=== PATIENT | female | born 1955 | race Caucasian/White ===

== ENCOUNTER 2019-04-25 10:57 | Inpatient (IN) ==
--- NOTE | 2019-04-25 11:50 | PROVIDER DOCUMENTATION ---
HPI-Neurological Disorder - General Chief Complaint: Stroke-Like Symptoms Stated Complaint: STROKE LIKE SYMPTOMS,FACIAL NUMBNESS,DIABETIC Time Seen by Provider: 04/25/19 11:28 Source: patient Allergies/Adverse Reactions: Patient Allergies Allergy/AdvReac Type Severity Reaction Status Date / Time No Known Allergies Allergy Verified 04/25/19 11:16 Home Medications: Home Medication List Medication Instructions Recorded Confirmed Last Taken Type Famotidine 40 mg PO BID 04/25/19 04/25/19 04/24/19 History Metformin HCl [Metformin HCl ER] 1,000 mg PO BID 04/25/19 04/25/19 04/25/19 History Ramipril 2.5 mg PO DAILY 04/25/19 04/25/19 04/24/19 History Sitagliptin [Januvia] 100 mg PO DAILY 04/25/19 04/25/19 04/24/19 History - History of Present Illness-Neuro Nature of Presenting Problem: Patient with a h/o DM, Gerd ?HTN reports severe headache with left facial numbness and slurred speech around 7AM today. Reports symptom improvement. Headache is now 3/10, no more facial numbness and speech is back to baseline at this time of evaluation. Denies extremity weakness. Reports no other symptom Headache Location: reports: global Severity: reports: mild, moderate Onset/Duration: reports: 4-6 hours ago Timing: reports: improving Context: reports: impaired speech Character of Altered Mental Status: reports: N/A Any recent trauma/injury?: reports: none Character of Deficits: reports: altered sensation New weakness or altered sensation location:: reports: none Cognitive Baseline: alert, oriented x3 Associated Symptoms: reports: slurred speech Similar Symptoms Previously?: No Recently seen or treated by another doctor?: No Review of Systems - Adult - REVIEW OF SYSTEMS - ADULT Constitutional: reports: no symptoms reported Eyes: reports: no symptoms reported Ears, Nose, Mouth & Throat: reports: no symptoms reported Cardiovascular: reports: no symptoms reported Respiratory: reports: no symptoms reported Gastrointestinal: reports: no symptoms reported Genitourinary: reports: no symptoms reported Musculoskeletal: reports: no symptoms reported Integumentary: reports: no symptoms reported Neurological: reports: see HPI Psychiatric: reports: no symptoms reported Endocrine: reports: no symptoms reported Hematologic/Lymphatic: reports: no symptoms reported Allergic/Immunologic: reports: no symptoms reported Past History - Adult - PAST MEDICAL HISTORY-ADULT Review of Records: reports: Nursing Assessment Review, Medications Reviewed, Social history reviewed & non-contributory. Cardiovascular: reports: HTN Respiratory: reports: denies history Gastrointestinal: reports: GERD Genitourinary: reports: denies history Musculoskeletal: reports: denies history Neurological: reports: past injury (concussion) Psychiatric: reports: denies history Endocrine/Immune: reports: denies history, Diabetes - PRIOR SURGERIES/PROCEDURES Surgical/Procedure History: reports: none - IMMUNIZATION STATUS Flu Vaccine: See Nurse Assessment - FAMILY HISTORY Family History: reviewed, not pertinent - SOCIAL HISTORY Smoking: other (former smoker) Substance Use: none/never Alcohol Use Frequency: never Living Situation: family Physical Exam- Neurological - Physical Exam-Neuro Initial Vital Signs Reviewed: Yes General Appearance: appears well, alert, no apparent distress Eye Exam: bilateral eye: PERRL, EOMI HENMT: normocephalic/atraumatic Head Injury: no evidence of injury Neck: non-tender, full range of motion, supple Respiratory: chest non-tender, lungs clear, normal breath sounds Cardiovascular: regular rate, rhythm Abdominal Exam: non tender, soft Extremity: normal range of motion director radio Exam: normal hearing, normal speech, PERRL Motor/Sensory: no motor deficit, no sensory deficit Neurologic: director radio II-XII nml as tested Integumentary: normal color Psych/Mental Status: oriented x 3 - Glascow Coma Scale Best Eye Response: (4) open spontaneously Best Verbal Response: (5) oriented Best Motor Response: (6) obeys commands Progress - PLAN OF CARE/RESULTS Progress/Plan/Lab Results: Vital Signs - 8 hr 04/25/19 11:00 Temperature 98.1 F Pulse Rate 87 Respiratory Rate 17 Blood Pressure 197/88 O2 Sat by Pulse Oximetry 97 Laboratory Results - last 24 hr 04/25/19 04/25/19 04/25/19 11:10 12:03 12:03 WBC 7.04 RBC 4.96 Hgb 14.7 Hct 44.6 MCV 89.9 MCH 29.6 MCHC 33.0 RDW Std Deviation 12.4 Plt Count 256 MPV 9.8 Immature Gran % (Auto) 0.3 Neut % (Auto) 63.8 Lymph % (Auto) 24.6 [place] % (Auto) 7.4 Eos % (Auto) 3.6 Baso % (Auto) 0.3 Immature Gran # (Auto) 0.02 Neut # (Auto) 4.50 Lymph # (Auto) 1.73 [place] # (Auto) 0.52 Eos # (Auto) 0.25 Baso # (Auto) 0.02 PT INR PTT (Actin FS) Sodium 141 Potassium 4.3 Chloride 99 Carbon Dioxide 25 Anion Gap 17 BUN 10 Creatinine 0.5 Estimated GFR/1.73 m2 > 60 BUN/Creatinine Ratio 20 Glucose 158 H POC Glucose Calculated Osmolality 284 Calcium 9.0 Total Bilirubin 0.24 AST 20 ALT 28 Alkaline Phosphatase 83 Troponin T Total Protein 7.4 Albumin 4.7 Globulin 2.7 Albumin/Globulin Ratio 1.7 Urine Opiates Screen NONE DETECTED Ur Oxycodone Screen NONE DETECTED Ur Methadone, Qual NONE DETECTED Ur Barbiturates Screen NONE DETECTED Ur Phencyclidine Scrn NONE DETECTED Ur Amphetamines Screen NONE DETECTED U Benzodiazepines Scrn NONE DETECTED Urine Cocaine Screen NONE DETECTED U Cannabinoids Screen NONE DETECTED 04/25/19 04/25/19 04/25/19 12:03 12:03 13:09 WBC RBC Hgb Hct MCV MCH MCHC RDW Std Deviation Plt Count MPV Immature Gran % (Auto) Neut % (Auto) Lymph % (Auto) [place] % (Auto) Eos % (Auto) Baso % (Auto) Immature Gran # (Auto) Neut # (Auto) Lymph # (Auto) [place] # (Auto) Eos # (Auto) Baso # (Auto) PT 11.8 INR 0.86 PTT (Actin FS) 23.5 Sodium Potassium Chloride Carbon Dioxide Anion Gap BUN Creatinine Estimated GFR/1.73 m2 BUN/Creatinine Ratio Glucose POC Glucose 152 H Calculated Osmolality Calcium Total Bilirubin AST ALT Alkaline Phosphatase Troponin T < 0.010 Total Protein Albumin Globulin Albumin/Globulin Ratio Urine Opiates Screen Ur Oxycodone Screen Ur Methadone, Qual Ur Barbiturates Screen Ur Phencyclidine Scrn Ur Amphetamines Screen U Benzodiazepines Scrn Urine Cocaine Screen U Cannabinoids Screen Orders Category Date Time Status Cardiac Monitoring DIRECTED Care 04/25/19 11:46 Active Finger Stick Blood Sugar (ED) DIRECTED Care 04/25/19 11:46 Completed Saline Loc NOW Care 04/25/19 11:46 Active Diabetic Diet Diet 04/25/19 15:25 Active CHEST-PORTABLE [RAD] Stat Exams 04/25/19 11:[address] HEAD W/O CONTRAST [CT] Stat Exams 04/25/19 11:[address] THORAX W/CONTRAST [CT] Stat Exams 04/25/19 13:00 Completed CBC WITH ELECTRONIC DIFF [HEME] Stat Lab 04/25/19 12:03 Completed COMPREHENSIVE METABOLIC PANEL [CHEM] Stat Lab 04/25/19 12:03 Completed PROTIME WITH INR [COAG] Stat Lab 04/25/19 12:03 Completed PTT [COAG] Stat Lab 04/25/19 12:03 Completed TROPONIN T Stat Lab 04/25/19 12:03 Completed URINE DRUG SCREEN Stat Lab 04/25/19 11:10 Completed Acetaminophen [Tylenol] Med 04/25/19 11:59 Discontinued 650 mg PO NOW ONE EKG [EKG] Stat Ther 04/25/19 11:46 Ordered Result Diagrams: 04/25/19 12:03 04/25/19 12:03 - XRAY 1 XRAY Study: Chest ( CHEST-PORTABLE - 04/25/2019 INDICATION: stroke like s ymptoms COMPARISON: None FINDINGS: Lung volumes are severely low. There is a pulmonary nodule in the left midlung. This measures about 1.5 cm. This is not clearly calcified. Heart size is normal. No pneumothorax or pleural effusion. IMPRESSION: Indeterminate pulmonary nodule in the left lung. Chest CT is recommended. Electronically signed by Usman Ramachandran 04/25/2019 12:14 PM) - CT/MRI 1 CT Study: Head ( CT HEAD W/O CONTRAST - 04/25/2019 INDICATION: stroke like symptoms COMPARISON: 03/15/2018 FINDINGS: The ventricles and sulci are normal in size and contour. No intracranial mass or hemorrhage. The skull is intact. The sinuses mastoids and middle ears are clear. IMPRESSION: Negative exam. This exam was performed using automated exposure control, adjustment of mA or kV according to patient size, and/or use of iterative reconstruction technique Electronically signed by Usman Ramachandran 04/25/2019 12:20 PM) 2 CT Study: Thorax ( CT THORAX W/CONTRAST - 04/25/2019 INDICATION: pulmonary nodule on cxr COMPARISON: Chest x-ray from earlier today FINDINGS: There is diffuse fatty change of the liver. No liver masses. Otherwise upper abdomen appears normal. There is no adenopathy. Heart and great vessels are normal. In the lateral right lower lobe, there is a round uniformly well-defined soft tissue density pulmonary nodule. This measures about 1.4 cm. There are several satellite nodules around it. Airways are clear. Bones are intact. IMPRESSION: 1. Left lower lobe pulmonary nodule, indeterminate but likely a benign granulomatous process. Recommend a short-term interval, 2-3 month follow-up chest CT. 2. Hepatic steatosis. This exam was performed using automated exposure control, adjustment of mA or kV according to patient size, and/or use of iterative reconstruction technique Electronically signed by Usman Ramachandran 04/25/2019 2:24 PM) - CONSULTS/PCP/HOSPITALIST Notification #1 *Consult/PCP/Hospitalist*: Dr Chappell Time Discussed: 03:55 Consult Disposition: Admit ([facility]LALLI Triplett accepted admission for Dr Chappell) Departure - Departure Date of Disposition Decision: 04/25/19 Time of Disposition Decision: 16:07 DIAGNOSIS: TIA (transient ischemic attack), Pulmonary nodule Disposition: ADMITTED INPATIENT 09 Certified Medical Emergency: Emergent Condition: Fair Referrals and Follow-Ups: Lali Johnson [Primary Care Provider] - - Critical Care Note This patient required my direct & personal management of CC.: No Attestation - Physician/ KATHLEEN Attestation Patient care was provided by Advanced Practice Provider:: No The physician spent face to face time with patient:: Yes Advanced Practice Provider documentation review:: Supervising physician onsite and consulted in the evaluation and care of this patient. The physician did have a face to face encounter with the patient.
[2019-04-25] MEDS ORDERED: TYLENOL PO ONE (11:59)
[2019-04-25 12:16] LABS: BASO# 0.02 X1000 (0.0-0.2); BASO% 0.3 % (0.0-0.8); EOS# 0.25 X1000 (0.0-0.7); EOS% 3.6 % (0.0-10.0); HEMATOCRIT 44.6 % (37.0-47.0); HEMOGLOBIN 14.7 g/dL (12.0-16.0); IMM GRAN# 0.02 X1000 (0.0-0.04); IMM GRAN% 0.3 % (0.0-0.5); LYMPH# 1.73 X1000 (1.2-3.4); LYMPH% 24.6 % (20.5-51.1); MCH 29.6 PG (27-31); MCV 89.9 FL (81-99); MONO# 0.52 X1000 (0.11-0.59); MONO% 7.4 % (1.7-9.3); MPV 9.8 FL (7.4-10.4); NEUT% 63.8 % (42.2-75.2); PLT 256 X1000 (130-400); RBC 4.96 XMIL (4.2-5.4); RDW 12.4 % (11.5-14.5); WBC 7.04 X1000 (4.8-10.8)
--- NOTE | 2019-04-25 12:17 | Diag Imaging Result Doc PS360 ---
CHEST-PORTABLE - 04/25/2019 INDICATION: stroke like symptoms COMPARISON: None FINDINGS: Lung volumes are severely low. There is a pulmonary nodule in the left midlung. This measures about 1.5 cm. This is not clearly calcified. Heart size is normal. No pneumothorax or pleural effusion. IMPRESSION: Indeterminate pulmonary nodule in the left lung. Chest CT is recommended. Electronically signed by Usman Ramachandran 04/25/2019 12:14 PM
--- NOTE | 2019-04-25 12:22 | Diag Imaging Result Doc PS360 ---
CT HEAD W/O CONTRAST - 04/25/2019 INDICATION: stroke like symptoms COMPARISON: 03/15/2018 FINDINGS: The ventricles and sulci are normal in size and contour. No intracranial mass or hemorrhage. The skull is intact. The sinuses mastoids and middle ears are clear. IMPRESSION: Negative exam. This exam was performed using automated exposure control, adjustment of mA or kV according to patient size, and/or use of iterative reconstruction technique Electronically signed by Usman Ramachandran 04/25/2019 12:20 PM
[2019-04-25 12:24] LABS: INR 0.86; PROTIME 11.8 Seconds (11.0-16.0)
[2019-04-25 12:25] LABS: PTT 23.5 Seconds (22.3-41.8)
[2019-04-25 12:39] LABS: AGAP 17; ALB/GLOB RATIO 1.7; ALBUMIN 4.7 g/dL (3.5-5.0); ALKALINE PHOSPHATASE 83 U/L (32-104); BUN 10 mg/dL (8-22); CHLORIDE 99 mmol/L (98-107); COSMO 284; CREATININE 0.5 mg/dL (0.5-0.9); ESTIMATED GFR > 60; GLUCOSE 158 mg/dL (70-104); GOT 20 U/L (10-30); GPT 28 U/L (10-36); POTASSIUM 4.3 mmol/L (3.5-5.1); SODIUM 141 mmol/L (136-145); TCO2 25 mmol/L (25-35); TOTAL BILIRUBIN 0.24 mg/dL (0.20-1.00); TOTAL PROTEIN 7.4 g/dL (6.3-8.3)
[2019-04-25 12:43] LABS: UR AMPHETAMINES QUAL NONE DETECTED (NONE DETECT); UR BARBITUATES QUAL NONE DETECTED (NONE DETECT); UR BENZODIAZEPIN QUAL NONE DETECTED (NONE DETECT); UR CANNABINOIDS QUAL NONE DETECTED (NONE DETECT); UR COCAINE QUAL NONE DETECTED (NONE DETECT); UR METHADONE QUAL NONE DETECTED (NONE DETECT); UR OPIATES QUAL NONE DETECTED (NONE DETECT); UR OXYCODONE QUAL NONE DETECTED (NONE DETECT); UR PCP QUAL NONE DETECTED (NONE DETECT)
--- NOTE | 2019-04-25 14:27 | Diag Imaging Result Doc PS360 ---
CT THORAX W/CONTRAST - 04/25/2019 INDICATION: pulmonary nodule on cxr COMPARISON: Chest x-ray from earlier today FINDINGS: There is diffuse fatty change of the liver. No liver masses. Otherwise upper abdomen appears normal. There is no adenopathy. Heart and great vessels are normal. In the lateral right lower lobe, there is a round uniformly well-defined soft tissue density pulmonary nodule. This measures about 1.4 cm. There are several satellite nodules around it. Airways are clear. Bones are intact. IMPRESSION: 1. Left lower lobe pulmonary nodule, indeterminate but likely a benign granulomatous process. Recommend a short-term interval, 2-3 month follow-up chest CT. 2. Hepatic steatosis. This exam was performed using automated exposure control, adjustment of mA or kV according to patient size, and/or use of iterative reconstruction technique Electronically signed by Usman Ramachandran 04/25/2019 2:24 PM
--- NOTE | 2019-04-25 18:34 | HISTORY AND PHYSICAL ---
CHIEF COMPLAINT: Headache with left facial numbness and slurred speech that started at 7 a.m. HISTORY OF PRESENT ILLNESS: This is a 63-year-old female who presented to the emergency room after having a severe headache, developing left facial numbness and slurred speech around 7 a.m. She presented to the emergency room at 11:30, stated that symptoms had improved with headache being a 3/10 and resolution of facial numbness and slurred speech. She feels like that other than the headache, she is back to her normal self. She denied any change in vision, any chest pain, nausea, any shortness of breath, or any other accompanying symptoms. PAST MEDICAL HISTORY: Hypertension, gastroesophageal reflux disease, and diabetes mellitus. PAST SURGICAL HISTORY: Ablation. SOCIAL HISTORY: She denies alcohol, tobacco, or illicit drug use. ALLERGIES: No known drug allergies. HOME MEDICATIONS: Pepcid, metformin, ramipril, and Januvia. Doses will be verified by the nursing staff. FAMILY HISTORY: Positive for diabetes mellitus and hypertension in parents. REVIEW OF SYSTEMS: Discussed with patient with pertinent positives stated in the HPI. She denied any syncope, dizziness, any chest pain or palpitations, any shortness of breath, cough, fever, chills, night sweats, recent weight loss or weight gain, any difficulty swallowing, any nausea, vomiting, diarrhea, constipation, black or bloody vomitus or stools, hematuria, dysuria, frequency, urgency. PHYSICAL EXAMINATION: GENERAL: This is a 63-year-old female who is sitting up on the stretcher in the emergency room in no distress. VITAL SIGNS: Blood pressure is 194/86, with a heart rate of 87, respirations are 17. Temperature is 98.1 degrees oral with room air saturations 99%. EYES: Pupils equal, round, react to light. EOMs are intact. Sclerae anicteric. HEENT: Head is normocephalic, atraumatic. Mucous membranes are moist. NECK: Supple with trachea midline. CARDIOVASCULAR: Regular rate and rhythm. S1 and S2 appreciated. She has no lower extremity edema. Calves are nontender bilaterally, with peripheral pulses palpable x4 extremities. PULMONARY: Breath sounds are clear. No increased work of breathing noted. Chest rises and falls symmetric to respiration. GASTROINTESTINAL: Abdomen is soft, nontender, nondistended, with bowel sounds in all 4 quadrants. GENITOURINARY: No CVA or suprapubic tenderness. NEUROLOGIC: She is alert and oriented x3. Pupils are equal, round, react to light. Forehead is spared. She has no facial droop. Equal nasal flaring. No tongue or uvula deviation. Speech is clear. She has equal shoulder shrug. No plantar drift. [id number] is 3/3 bilaterally. Sports Internship are equal and strong. Muscle strength is 5/5 in all 4 extremities. Gait is steady. LABORATORY AND DIAGNOSTIC DATA: 1. WBC is 7.0, with hemoglobin 14.7, hematocrit 44.6, and platelets 256,000. Sodium 141, potassium 4.3, BUN 10, creatinine 0.5, with a glucose of 158. Urine drug screen reveals none detected. 2. CT of the head is a negative exam. 3. Chest x-ray reveals indeterminate pulmonary nodule that measures about 1.5 cm in the left mid lung with CT of the chest recommended. 4. CT of the thorax with contrast revealed the left lower lobe pulmonary nodule, indeterminate, but likely a benign granulomatous process. Recommend followup in 2 to 3 months. Hepatic steatosis. ASSESSMENT: 1. Transient ischemic attack. 2. Headache. 3. Pulmonary nodule. 4. Gastroesophageal reflux disease. 5. Diabetes mellitus. 6. Hypertension. PLAN: 1. The patient will be admitted to the hospital, placed on telemetry, neurologic checks every 4 hours, patterned blood glucose with sliding scale insulin. We will identify her home medications and continue these as appropriate. Check a CBC, CMP, lipid profile in the morning. Get bilateral carotid Doppler as well as an echocardiogram. 2. Will allow for permissive hypertension giving hydralazine 10 mg IV q.4 hours p.r.n. systolic blood pressure greater than 190 or diastolic blood pressure greater than 90. 3. Pulmonary nodule. The patient will need to follow up with her primary care provider, Lali Johnson, for further workup as recommended per Radiology, a CT of the chest in 2 to 3 months. 4. Plan was discussed with Dr. Boogie. Further treatments pending hospital course. Dictated by HELADIO Randhawa for Bryce Nova MD cc: HELADIO Randhawa MD
--- NOTE | 2019-04-25 18:50 | HISTORY AND PHYSICAL ---
ADDENDUM: Patient seen and examined by me [id number]. All the laboratory, vital signs and images were reviewed. Patient presented to the emergency department with left-sided face weakness and slurred speech, but at the moment of her evaluation, the symptoms were already resolved. Apparently, everything started around 7 a.m. today. She was complaining of some headache and apparently some kind of light and started having some facial weakness with slurred speech. Her blood pressure was elevated. Her physical exam is benign. I will put her on aspirin. Also, I will put her on Lipitor and I will start with 20 daily. I will check the lipid panel as well. Depending on her evolution, probably I will get Neurology Department to see this patient. I will get an echocardiogram and also a carotid ultrasound. I agree with the rest of the nurse practitioner's assessment and plan. cc: Bryce Nova MD
[2019-04-25] MEDS: APRESOLINE IV PRN (20:00)
[2019-04-25] MEDS: ASPIRIN EC PO SCH (20:14)
[2019-04-25] MEDS: HUMALOG SUBQ SCH (22:23)
[2019-04-26] MEDS: APRESOLINE IV PRN (01:10)
[2019-04-26] MEDS: HUMALOG SUBQ SCH ×3 (06:33→16:27)
[2019-04-26 07:24] LABS: HEMATOCRIT 39.7 % (37.0-47.0); HEMOGLOBIN 13.4 g/dL (12.0-16.0); MCH 30.1 PG (27-31); MCHC 33.8 g/dL (33-37); MCV 89.2 FL (81-99); MPV 9.8 FL (7.4-10.4); RBC 4.45 XMIL (4.2-5.4); RDW 12.6 % (11.5-14.5); WBC 8.14 X1000 (4.8-10.8)
[2019-04-26 08:07] LABS: AGAP 16; ALB/GLOB RATIO 1.6; ALBUMIN 4.2 g/dL (3.5-5.0); ALKALINE PHOSPHATASE 83 U/L (32-104); BUN 11 mg/dL (8-22); CALCIUM 8.1 mg/dL (8.8-10.2); CHLORIDE 98 mmol/L (98-107); CHOLESTEROL 211 mg/dL (0-200); COSMO 280; CREATININE 0.6 mg/dL (0.5-0.9); ESTIMATED GFR > 60; GLUCOSE 181 mg/dL (70-104); GOT 18 U/L (10-30); GPT 23 U/L (10-36); HDL 53 mg/dL (45-65); LDL 115 mg/dL; POTASSIUM 3.6 mmol/L (3.5-5.1); SODIUM 138 mmol/L (136-145); TCO2 24 mmol/L (25-35); TOTAL BILIRUBIN 0.35 mg/dL (0.20-1.00); TOTAL PROTEIN 6.9 g/dL (6.3-8.3); TRIGLYCERIDES 217 mg/dL (35-135); VLDL 43 mg/dL
[2019-04-26] MEDS: LIPITOR PO SCH (09:50)
[2019-04-26] MEDS: ASPIRIN EC PO SCH (09:50)
[2019-04-26] MEDS: JANUVIA PO SCH (09:50)
[2019-04-26] MEDS: GLUCOPHAGE XR PO SCH ×2 (09:50→20:36)
--- NOTE | 2019-04-26 12:30 | CONSULTATION ---
DATE OF CONSULTATION: 04/26/2019 LOCATION: Room 322B. HISTORY OF PRESENT ILLNESS: Ms. Prescott is 63 years old and she had possible neurologic episode yesterday. 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 She opened the blinds and noted very bright light coming from her right. She believes vision was disturbed without any focal or monocular features, and took a few minutes to adjust to the bright light. She developed headache, which was mostly bilateral forehead pressure and aching, very similar to what she has experienced with "sinus and allergy problems" in the past. She called to her daughter, and says that she noticed her speech was very high-pitched, which was unusual. She then seemed to have trouble finding her words and making complete sentences. Ambulance was summoned. By the time paramedics arrived, in just a few minutes, she was speaking much better, and may have been back to normal. She did recover completely to normal very soon. Headache persisted through the day, but has resolved this morning. She had a sense of numbness over the left side of her face during the time of vision disturbance and speech difficulty. This resolved in a matter of minutes. She did not look in the mirror and she reports no one reported facial asymmetry to her. There was no slurring of speech. She did not have trouble chewing or swallowing. She did not have numbness or weakness in the limbs. There was no gait difficulty. She did not lose consciousness or have a memory gap. She reports no prior similar episode. There is no history of previous diagnosed stroke. She has never had seizure or other neurologic event. There is not history of serious head injury. She has a history of episodic headaches, but she has never had a headache associated with neurologic deficit before. She has longstanding hypertension. She reports blood pressure is checked at home, systolics running 180s to 200s in recent days. She presented with systolic blood pressure 190s here. She had missed at least one dose of ramipril prior to admission. After getting her morning medicine, systolic blood pressure is 120 today. She has diabetes mellitus, treated with metformin. Blood sugars have been 150s to 180s here. She has dyslipidemia, and told me that she thinks she takes medicine for cholesterol, but I do not see anything on her preadmission medication list. Atorvastatin was started here. Admission lab showed triglycerides 217 and total cholesterol 211, with LDL [address] and VLDL [address] of the head was unremarkable. PHYSICAL EXAMINATION: On exam, Ms. Prescott is awake, alert, attentive, appropriate. Speech is not dysarthric. Language function is intact on careful bedside testing, including repeating, naming, comprehension, fluency, reading. I did not test handwriting. She did well on test requiring digit distinction and right/left distinction. Recent and remote memory are good. She is completely oriented. Head and neck are unremarkable. Visual andres are full to confrontational finger counting. Extraocular movements are full. Facial motility is symmetric. Facial sensation is intact. Gag is intact. Tongue is midline. Hearing is good. Shoulder shrug is equal. Strength is normal in the arms and legs. Tone is symmetric. She did well on [id number] testing bilaterally. She reports good pinprick and light touch appreciation throughout, including no evidence of stocking pattern of sensory loss. Plantar response is silent bilaterally. Reflexes are 2+ at the left ankle, trace at the right ankle, 2+ at the knees, 2+ at the wrists, 1+ at the biceps. I did not test her gait. IMPRESSION: Transient difficulty making herself understood with speech, subjective left-sided facial numbness, bilateral forehead pain. This has all resolved. She presented with significant blood pressure elevation. We discussed her risk factors for cerebrovascular ischemic problem, and I encouraged her to be aggressive with management of those. She had taken daily aspirin in the past, but stopped that after gastrointestinal workup, and did not resume it. If she cannot tolerate aspirin, clopidogrel might be an option. Etiology of episode is not certain. Migraine is a possibility. Transient ischemic attack is a possibility. Transient neurologic symptoms related to elevated blood pressure is a possibility. At this point, she is stable, completely recovered, and I do not think we have to do anything more urgently. I will be glad to see her again if she has headache with blood pressure controlled, if she has more neurologic deficit or other neurologic problem. Thank you for asking Neurology to see Ms. Prescott. cc: MD VICTOR M Roche III
--- NOTE | 2019-04-26 12:59 | PROGRESS NOTE ---
DATE: 04/26/2019 SUBJECTIVE: No acute events overnight. She is not having any kind of symptoms at this moment. Pending Neurology Department evaluation, as well as carotid ultrasound and echocardiogram. OBJECTIVE: Vital Signs: Temperature 98.6 degrees, pulse 97, respiratory rate 20, blood pressure 145/70, oxygen saturation 99 on room air. HEENT: Head normocephalic. No trauma. PERRLA. Neck: Supple. No JVD. No masses. Central trachea. Chest: Clear to auscultation. No wheezing. No rales. Abdomen: Soft, nontender, nondistended. No hepatosplenomegaly. Extremities: No edema, no clubbing, no cyanosis. Neurological: The patient is alert. She is oriented x3. No focal neurological deficits. LABORATORY DATA: WBC 8.1, hemoglobin 13.4, hematocrit 39.7, platelets 287,000. Sodium 138, potassium 3.6, chloride 98, bicarbonate 24, BUN 11, creatinine 0.6, glucose 181, calcium 8.1. AST 18, ALT 23, alkaline phosphatase 83, albumin 4.2. Triglycerides 217, cholesterol 211, LDL 115. ASSESSMENT AND PLAN: 1. Transient ischemic attack. As per the patient, she started having left-sided face weakness and slurred speech, but at the moment of my evaluation yesterday and today, that was resolved. At this moment, the carotid ultrasound and the echocardiogram are pending. Also, I have requested an evaluation by Neurology Department. Chest CT scan showed a left lower lobe pulmonary nodule, and she will need to repeat a CT scan again in 2 to 3 months. This has been explained to the patient. CT scan of the head without any kind of problems. 2. Gastroesophageal reflux disease. Continue with the same management. 3. Diabetes. I have placed this patient back on her home medications, and also I will request a hemoglobin A1c. 4. Hypertension. I will continue with her home medications, and I will monitor. 5. Pulmonary nodule seen on the CT scan. They have recommended a followup in 2 to 3 months. 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 cc: Bryce Nova MD
[2019-04-26] MEDS: ALTACE PO SCH (13:23)
--- NOTE | 2019-04-26 19:29 | ECHO REPORT ---
ORDER DATE: 04/25/2019 INDICATION: Transient ischemic attack, coronary heart disease suspected. M-MODE MEASUREMENTS: Left ventricle end diastole: 4.2. Left ventricle end systole: 2.2. Posterior wall: 0.9. Interventricular septum: 0.9. Left atrium: 2.2. Aortic diameter: 2.7. SUMMARY OF 2-DIMENSIONAL IMAGIN. Left ventricular function is normal. Ejection fraction is 67%. There is no wall motion abnormality. 2. The aortic valve looks normal. Color flow mapping unremarkable. 3. The mitral valve looks normal. Color flow mapping unremarkable. 4. Pulsed wave Doppler of mitral inflow shows mild reversal of the E/A ratio. The ratio is 0.6. 5. Tissue Doppler of septal and lateral mitral annulus averages 7 cm. 6. Pulmonary venous flow is normal. There is no diastolic dysfunction. 7. The inferior vena cava is not dilated. 8. The tricuspid valve shows a minimal degree of regurgitation. Pulmonary pressure is estimated at 33 mmHg. 9. The pulmonic valve is unremarkable. 10.There is no pericardial effusion, no mass, and no thrombus. SUMMARY: This study shows: 1. Normal left ventricular systolic function. 2. No diastolic dysfunction. 3. Pulmonary pressure of 33 mm Hg. 4. No evidence of any significant valvular abnormality. Clinical correlation recommended. cc: MD Flora Calderón CRNP
[2019-04-27] MEDS: HUMALOG SUBQ SCH ×2 (02:16→06:21)
--- NOTE | 2019-04-27 06:28 | Carotid Study ---
DATE: 04/26/2019 REFERRING PRACTITIONER: Dr. Ro READING PHYSICIAN: Dr. Jaime Cooper. MANAGER ENVIRONMENTAL HEALTH: Talia. INDICATION: TIA. FINDINGS: There is irregular calcific plaque at the right carotid bulb and proximal internal carotid artery producing some turbulent flow and elevated velocity. There is smaller plaque in the same location on the left side. There is antegrade vertebral flow bilaterally. The percent stenosis is 40 to 59 percent on the right, 0 to 39 percent on the left. INTERPRETATION: Moderate plaque disease on the right side as described above and mild plaque disease on the left side, neither of which are hemodynamically significant at this time. cc: MD Flora Han CRNP
[2019-04-27 07:50] LABS: AGAP 15; BUN 17 mg/dL (8-22); CHLORIDE 99 mmol/L (98-107); COSMO 281; CREATININE 0.6 mg/dL (0.5-0.9); ESTIMATED GFR > 60; GLUCOSE 194 mg/dL (70-104); POTASSIUM 4.2 mmol/L (3.5-5.1); SODIUM 137 mmol/L (136-145); TCO2 23 mmol/L (25-35)
[2019-04-27 08:03] VITALS: BP 136/83
[2019-04-27 08:08] LABS: HEMOGLOBIN A1C 8.2 % (4.8-6.0)
[2019-04-27] MEDS: JANUVIA PO SCH (08:41)
[2019-04-27] MEDS: ASPIRIN EC PO SCH (08:41)
[2019-04-27] MEDS: LIPITOR PO SCH (08:41)
[2019-04-27] MEDS: GLUCOPHAGE XR PO SCH (08:41)
[2019-04-27] MEDS: ALTACE PO SCH (08:41)
[2019-04-27] MEDS ORDERED: FLU VACCINE IM ONE (10:15)
--- NOTE | 2019-04-27 11:43 | PROGRESS NOTE ---
DATE: 04/27/2019 Ms. Prescott has been stable neurologically. Headache continues improved. Systolic blood pressures have been 110s-130s in the last 24 hours. Blood sugars continue moderately elevated. She has tolerated aspirin this admission. Echocardiogram showed no source of embolus. I do not have any new suggestion from a neurology standpoint. Again, I encouraged her to be aggressive with management of her cerebrovascular risk factors. I told her to check with her primary physician regarding antiplatelet management since there may have been a recommendation from her GI doctor to stop that in the past. If she has headache with blood pressure controlled or if she has other neurologic problems, I will be glad to see her again. Thanks for asking us to see Ms. Prescott. cc: Justa Kruger III, MD [facility]
--- NOTE | 2019-04-27 21:51 | DISCHARGE SUMMARY ---
ADMISSION DATE: 04/25/2019 DISCHARGE DATE: 04/27/2019 DISCHARGE DIAGNOSES: 1. Transient ischemic attack. 2. Gastroesophageal reflux disease. 3. Diabetes. 4. Hypertension. 5. Pulmonary nodule seen on the CT scan. CONSULTS: Neurology Department, Dr. Kruger. PROCEDURES PERFORMED: Head CT scan dated 04/25/2019. Impression: Negative exam. Chest CT scan dated 04/25/2019. 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 Recommended a short-term interval, 2 to 3 months, follow up with CT scan. Carotid Doppler ultrasound dated 04/25/2019: Moderate plaque disease on the right side, 40 to 59 percent stenosis. Mild plague disease on the left side with 0 to 39 percent stenosis. Neither of which are hemodynamically significant at this time. Echocardiogram dated 04/25/2019: In summary, normal left ventricular systolic function. No diastolic dysfunction. Pulmonary pressure of 33 mmHg. No evidence of any significant valvular abnormality. HOSPITAL COURSE: A 63-year-old female presented to the emergency department and was admitted on 04/25/2019 after having a severe headache, development of left facial numbness and slurred speech around 7 a.m.. She presented to the emergency room at 11:30. She stated that symptoms had improved with headache being 3/10 and resolution of the facial numbness and slurred speech. She fells like that other than the headache, she is back to her normal self. 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 She was admitted to the medical floor. We allowed permissive hypertension due to the possibility of a little stroke or TIA. Head CT scan did not show any new abnormality. A CT scan of the chest, though, showed a left lower pulmonary nodule and I discussed with the patient that she needs to be seen and repeat a new CT scan in 2 to 3 months and she understands that. I did also a carotid Doppler ultrasound and also an echocardiogram. The carotid Doppler ultrasound showed a moderate plaque disease on the right side with 40 to 59 percent stenosis. The left side showed 0 to 39 percent stenosis with mild plaque . Neither of which are hemodynamically significant at this moment. The patient seems to be feeling better. I put her back on her home medication for the blood pressure and the blood pressure has been more stable, mostly in the 120s and 130s. She seems to be feeling better. She is tolerating p.o., she is ambulating. She has no symptoms. She has been evaluated by Neurology Department, who recommended to continue with same treatment and aggressive management of her cardiovascular risk factors. PHYSICAL EXAMINATION: Vital signs: Temperature 98.1 degrees, pulse 82, respiratory rate 19, blood pressure 136/83, oxygen saturation 95% on room air. HEENT: Head normocephalic, no trauma. PERRLA. Neck: Is supple. No JVD. No masses. Central trachea. Chest: Clear to auscultation. No wheezing. No rales. Abdomen: Soft, nontender, nondistended. No hepatosplenomegaly. Extremities: No edema. No clubbing. No cyanosis. Neurological: The patient is alert. She is oriented x3. No focal deficits. LABORATORY: Sodium 137, potassium 4.2, chloride 99, bicarbonate 23, BUN 70, creatinine 0.6, glucose 194, calcium 9. Hemoglobin A1c 8.2. DISCHARGE MEDICATIONS: Aspirin enteric coated 81 mg p.o. daily, atorvastatin 20 mg p.o. daily, famotidine 40 mg p.o. b.i.d., metformin 1000 mg p.o. b.i.d., ramipril 2.5 mg p.o. daily, and Januvia 100 mg p.o. daily. FOLLOWUP: Follow up with her primary care doctor on 05/04/2019 at 9:15 a.m. Also she can call and make an appointment with Dr. Kruger as needed if symptoms are back. I talked to the patient about taking care of her blood sugar and also her blood pressure. She seems to understand. TIME SPENT DISCHARGING THIS PATIENT: 30 minutes. cc: Bryce Nova MD
== END 2019-04-27 11:19 | disposition home or self-care (01) | DRG 69 ==
LOC: ED 10:57 → EDIPHOLD 18:51 → 3N 22:40
PROVIDERS: ATTEND Internal Medicine